=== PATIENT | male | born 1975 | race Caucasian/White ===

== ENCOUNTER 2017-12-29 22:09 | Observation (INO) | payer BC ==
[~2017-12-29] VITALS: Ht 172.7 cm; Wt 78.0 kg
[~2017-12-29 22:09] MED LIST: KEFLEX500 MG PO
[2017-12-29] MEDS ORDERED: KETOROLAC TROMETHAMINE 30 MG/ML VIAL IV STA (22:11)
--- OUTSIDE RECORDS SUMMARY | 2017-12-29 22:12 | XMS REPORT | Clinical Summary ---
Author Author [facility] Organization [facility] Address Unknown Phone Unavailable Care Team Providers Care Pulpwood Buyer Name Role Phone Asked, Pcp PCP Unavailable Allergies Active Allergy Reactions Severity Noted Date Comments Codeine Anaphylaxis High 05/26/2017 Current Medications Prescription Sig. Disp. Refills Start End Date Status Date ibuprofen (MOTRIN IB) 200 Take 200 mg by mouth as Active MG tablet needed for mild pain. 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 There is no significant deformity or malalignment. There are no acute fractures or dislocations. The longitudinal arch appears neutral. There is no soft tissue swelling noted. * XR Lower Extremity External Study (05/18/2017 8:30 AM) Specimen Performing Laboratory [facility] [address] [place] [address] Narrative This exam was not acquired at a [facility] facility and has not been interpreted by a [facility] Provider.The exam was imported into our imaging system for comparisons purposes. after 12/28/2016 Insurance Payer Benefit Subscriber ID Type Phone Address Plan / Group BCBS BCBS xxxxxxxxxxxx PPO CHOICE PPO/JEFF CRAMER PPO
[2017-12-29 22:36] LABS: BASOPHILS % 0.5 % (0.0-1.0); BILIRUBIN,URINE NEGATIVE (NEGATIVE); EOSINOPHILS # (AUTO) 0.3 (0.0-0.4); EOSINOPHILS % 5.2 % (0.0-6.0); HEMATOCRIT 40.8 % (38.2-49.6); HEMOGLOBIN 13.8 g/dL (14.0-18.0); KETONES,URINE NEGATIVE (NEGATIVE); LEUKOCYTE ESTERASE ,URINE NEGATIVE (NEGATIVE); LYMPHOCYTES # (AUTO) 3.1 (1.0-3.2); LYMPHOCYTES % 50.3 % (18.0-39.1); MEAN CORPUSCULAR HEMOGLOBIN 30.6 pg (28-32); MEAN CORPUSCULAR HGB CONC 33.8 g/dL (31-35); MEAN CORPUSCULAR VOLUME 90.5 fL (81-99); MONOCYTES # (AUTO) 0.6 (0.2-0.8); MONOCYTES % 9.6 % (4.4-11.3); NEUTROPHILS # (AUTO) 2.1 (2.1-6.9); NEUTROPHILS % 34.2 % (38.7-80.0); NITRITE,URINE NEGATIVE (NEGATIVE); PLATELET COUNT 226 x10e3/uL (140-360); PROTEIN,URINE DIPSTICK NEGATIVE (NEGATIVE); RED BLOOD COUNT 4.51 x10e6/uL (4.3-5.7); RED CELL DISTRIBUTION WIDTH 12.9 % (11.7-14.4); URINE UROBILINOGEN 0.2 mg/dL (0.2 - 1)
[2017-12-29 22:38] LABS: CLARITY,URINE CLEAR (CLEAR); COLOR,URINE YELLOW (YELLOW)
[2017-12-29 22:55] LABS: ALANINE AMINOTRANSFERASE 16 IU/L (0-55); ALBUMIN 4.2 g/dL (3.5-5.0); ALBUMIN/GLOBULIN RATIO 1.3 (0.8-2.0); ALKALINE PHOSPHATASE 52 IU/L (40-150); ANION GAP 13.5 mmol/L (8-16); BLOOD UREA NITROGEN 15 mg/dL (7-26); BUN/CREATININE RATIO 13 (6-25); CALCIUM 9.2 mg/dL (8.4-10.2); CARBON DIOXIDE 27 mmol/L (22-29); CHLORIDE 104 mmol/L (98-107); CREATININE, SERUM 1.17 mg/dL (0.72-1.25); EST GLOMERULAR FILTRATION RATE > 60 ML/MIN (60-); GLUCOSE 103 mg/dL (74-118); POTASSIUM 3.5 mmol/L (3.5-5.1); SODIUM 141 mmol/L (136-145)
--- NOTE | 2017-12-29 22:55 | Diagnostic Imaging Report ---
EXAM: CT ABDOMEN AND PELVIS without IV CONTRAST ORDER DATE: 12/29/2017 10:16 PM Time stamp on Exam: 2220 hours INDICATION: Left flank pain COMPARISON: CT of the abdomen and pelvis without IV contrast May 30, 2017 TECHNIQUE: The abdomen and pelvis were scanned using a multidetector helical scanner. Coronal and sagittal reformations were obtained. Renal stone protocol performed. IV Contrast: None Oral Contrast: None CTDIvol has been reviewed. It is below the limits set by the Radiation Protocol Committee (RPC). FINDINGS: LOWER THORAX: No consolidations LIVER: No masses BILIARY: Normal gallbladder. No ductal dilation. SPLEEN: No masses PANCREAS: No masses ADRENALS: No nodules RIGHT KIDNEY: Stable 2 mm nonobstructing stone in the inferior pole of the right kidney. LEFT KIDNEY: There is a 3 mm stone at the left ureterovesicular junction resulting in mild hydroureteronephrosis. The previously seen 3 mm stone in the superior pole of the right kidney is no longer visualized, consistent with the stone now at the ureterovesicular junction. No residual left kidney stones. GI TRACT: No wall thickening or obstruction. Normal appendix. VESSELS: Normal. PERITONEUM/RETROPERITONEUM: No free air or fluid LYMPH NODES: No lymphadenopathy REPRODUCTIVE ORGANS: Normal BLADDER: Normal SOFT TISSUES: Normal BONES: No suspicious bone lesions. IMPRESSION: 1. There is a 3 mm stone at the left ureterovesicular junction resulting in mild hydroureteronephrosis. 2. Stable nonobstructing 2 mm stone in the inferior pole of the right kidney. Signed by: Dr. Alisa Pace M.D. on 12/29/2017 10:51 PM
[2017-12-29 23:02] LABS: BACTERIA,URINE RARE /HPF; WBC,URINE (MAN) 0-5 /HPF (0-5)
[2017-12-29] MEDS ORDERED: PENTAZOCINE/NALOXONE 1 TAB PO PRN (23:15)
--- OUTSIDE RECORDS SUMMARY | 2017-12-30 00:07 | XMS REPORT ---
Author Author [facility] Address Unknown Phone Unavailable Care Team Providers Care Waste Management Engineer Name Role Phone ZAFAR ASHRAF Unavailable Unavailable Problems This patient has no known problems. Allergies, Adverse Reactions, Alerts This patient has no known allergies or adverse reactions. Medications This patient has no known medications. Results Test Description Test Time Test Comments Text Results Atomic Results Result Comments CT ABDOMEN/PELVIS WO [place] [address] Patient Name: HAYLIE LEON MR #: [id number] : 1975 Age/Sex: 42/M Req #: [id number] Adm Physician: Ordered by: ZAFAR ASHRAF MD Report # : [id number] Location: ER Room/Bed: Procedure: [id number] CT/CT ABDOMEN/PELVIS WO Exam Date: 12/29/17 Exam Time: 2219 REPORT STATUS: Signed EXAM: CT ABDOMEN AND PELVIS without IV CONTRAST ORDER DATE: 12/29/2017 10:16 PM Time stamp on Exam: 2220 hours INDICATION: Left flank pain COMPARISON: CT of the abdomen and pelvis without IV contrast May 30, 2017 TECHNIQUE: The abdomen and pelvis were scanned using a multidetector helical scanner. Coronal and sagittal reformations were obtained. Renal stone protocol performed. IV Contrast: None Oral Contrast: None CTDIvol has been reviewed. It is below the limits set by the Radiation Protocol Committee (RPC). FINDINGS: LOWER THORAX: No consolidations LIVER: No masses BILIARY: Normal gallbladder. No ductal dilation. SPLEEN: No masses PANCREAS: No masses ADRENALS: No nodules RIGHT KIDNEY: Stable 2 mm nonobstructing stone in the inferior pole of the right kidney. LEFT KIDNEY: There is a 3 mm stone at the left ureterovesicular junction resulting in mild hydroureteronephrosis. The previously seen 3 mm stone in the superior pole of the right kidney is no longer visualized, consistent with the stone now at the ureterovesicular junction. No residual left kidney stones. GI TRACT: No wall thickening or obstruction. Normal appendix. VESSELS: Normal. PERITONEUM/ RETROPERITONEUM: No free air or fluid LYMPH NODES: No lymphadenopathy REPRODUCTIVE ORGANS: Normal BLADDER: Normal SOFT TISSUES: Normal BONES : No suspicious bone lesions. IMPRESSION: 1. There is a 3 mm stone at the left ureterovesicular junction resulting in mild hydroureteronephrosis. 2. Stable nonobstructing 2 mm stone in the inferior pole of the right kidney. Signed by: Dr. Marshall Ames M.D. on 12/29/2017 10:51 PM Dictated By: MARSHALL AMES MD 50 Transcribed By: [place]ORD on 12/29/172250 COPY TO: ZAFAR ASHRAF MD
--- OUTSIDE RECORDS SUMMARY | 2017-12-30 00:07 | XMS REPORT | Clinical Summary ---
Author Author [facility] Organization [facility] Address Unknown Phone Unavailable Care Team Providers Care Trauma Nurse Name Role Phone Asked, Pcp PCP Unavailable [...] interspace of right foot (Primary Dx) after 12/29/2016 Social History Tobacco Use Types Packs/Day Years Used Date Never Smoker Alcohol Use Drinks/Week oz/Week Comments Yes 2 Glasses of wine Sex Assigned at Date Recorded Not on file Last Filed Vital Signs Not on file Plan of Treatment Health Maintenance Due Date Last Done Comments INFLUENZA VACCINE 06/02/2017 Results * XR Foot 3+ Vw Right (05/26/2017 2:46 PM) Specimen Performing Laboratory [facility] [address] [place] [address] Narrative 3 views taken today of the right foot show well-preserved joint spaces throughout. There is no significant deformity or malalignment. There are no acute fractures or dislocations. The longitudinal arch appears neutral. There is no soft tissue swelling noted. * XR Lower Extremity External Study (05/18/2017 8:30 AM) Specimen Performing Laboratory [facility] [address] [place] [address] Narrative This exam was not acquired at a [facility] facility and has not been interpreted by a [facility] Provider.The exam was imported into our imaging system for comparisons purposes. after 12/29/2016 Insurance Payer Benefit Subscriber ID Type Phone Address Plan / Group BCBS BCBS xxxxxxxxxxxx PPO CHOICE PPO/JEFF CRAMER PPO
[2017-12-30 00:30] VITALS: BP 158/93
[2017-12-30] MEDS: SODIUM CHLORIDE 0.9% 1000ML 1,000 ML IV SCH ×2 (00:42→13:44)
[2017-12-30 00:52] VITALS: BP 158/93
[2017-12-30] MEDS: KETOROLAC TROMETHAMINE 30 MG/ML VIAL IV PRN ×3 (04:40→13:59)
[2017-12-30 05:03] VITALS: BP 138/86
[2017-12-30 06:34] LABS: BASOPHILS % 0.5 % (0.0-1.0); EOSINOPHILS # (AUTO) 0.3 (0.0-0.4); EOSINOPHILS % 4.6 % (0.0-6.0); HEMATOCRIT 36.9 % (38.2-49.6); HEMOGLOBIN 12.2 g/dL (14.0-18.0); LYMPHOCYTES # (AUTO) 2.5 (1.0-3.2); LYMPHOCYTES % 40.7 % (18.0-39.1); MEAN CORPUSCULAR HEMOGLOBIN 30.2 pg (28-32); MEAN CORPUSCULAR HGB CONC 33.1 g/dL (31-35); MEAN CORPUSCULAR VOLUME 91.3 fL (81-99); MONOCYTES # (AUTO) 0.6 (0.2-0.8); MONOCYTES % 9.5 % (4.4-11.3); NEUTROPHILS # (AUTO) 2.7 (2.1-6.9); NEUTROPHILS % 44.5 % (38.7-80.0); PLATELET COUNT 198 x10e3/uL (140-360); RED BLOOD COUNT 4.04 x10e6/uL (4.3-5.7); RED CELL DISTRIBUTION WIDTH 12.8 % (11.7-14.4)
[2017-12-30 06:58] LABS: ALANINE AMINOTRANSFERASE 13 IU/L (0-55); ALBUMIN 3.4 g/dL (3.5-5.0); ALBUMIN/GLOBULIN RATIO 1.3 (0.8-2.0); ALKALINE PHOSPHATASE 42 IU/L (40-150); ANION GAP 12.4 mmol/L (8-16); BLOOD UREA NITROGEN 11 mg/dL (7-26); BUN/CREATININE RATIO 11 (6-25); CALCIUM 8.8 mg/dL (8.4-10.2); CARBON DIOXIDE 26 mmol/L (22-29); CHLORIDE 110 mmol/L (98-107); EST GLOMERULAR FILTRATION RATE > 60 ML/MIN (60-); GLUCOSE 91 mg/dL (74-118); POTASSIUM 4.4 mmol/L (3.5-5.1); SODIUM 144 mmol/L (136-145)
[2017-12-30] MEDS ORDERED: PENTAZOCINE/NALOXONE 1 TAB PO PRN (07:45)
[2017-12-30] MEDS ORDERED: KETOROLAC TROMETHAMINE 30 MG/ML VIAL IV STA (07:54)
[2017-12-30 08:22] VITALS: BP 142/100
--- NOTE | 2017-12-30 09:12 | History and Physical ---
DATE OF VISIT: December 30, 2017 HISTORY: This is a 42-year-old male who is recurrent stone former, comes into the hospital after being in pain, left sided, left flank and lower abdomen for 24 hours. PATIENT HAS MULTIPLE ALLERGIES TO ORAL MEDICATION. In the emergency room, he was given ketorolac, and CT scan was done. CT showed a 3-mm stone low in the ureter with minimal perinephric stranding and hydroureter. The patient by history has passed two other stones in the past, one 3-1/2 years ago and one last May. CT scan last May showed a punctuated calcification within the kidney that now in December has developed into a 3-mm stone. Patient had passed stones in the past with pain control and pain management. There has been no other evaluation for a recurrent stone former. The stones are composed of calcium oxalate. PAST MEDICAL HISTORY: Essentially negative except for kidney stone. PAST SURGICAL HISTORY: None. FAMILY HISTORY: Noncontributory for kidney stones. SOCIAL HISTORY: . Two children. Sexually active. No alcohol and no tobacco. No illicit drugs. ALLERGIES: ALLERGIC TO CODEINE, ZOFRAN, PHENERGAN, DILAUDID, AND NORCO. PHYSICAL EXAMINATION: Urological examination revealed bilateral descended testicles, penis normal, no hernias. Pain is present now all the way down to the testicle. IMPRESSION: Ureteral calculi. RECOMMENDATION: The patient should have a 95% chance of passing the stone, as to the time in which this will happen is uncertain, the patient and I discussed that. We discussed 24-hour urine collection. We also discussed medical management at this point and the patient agrees to drink more water, watch his salt intake, take Keratin Complex, and hopefully do a 24-hour urine collection to determine why he has formed stones recurrently. I would check the patient again this afternoon, and if the pain has gotten better or the patient has passed the stone, we will send the patient home. What makes treatment of this patient more complex is the fact that HE HAS ALLERGIES TO ORAL MEDICATIONS that he can take at home. Job#: [id number]
[2017-12-30 12:11] VITALS: BP 143/88
[2017-12-30] MEDS ORDERED: TALWIN NX (14:00)
--- NOTE | 2017-12-30 14:27 | Discharge Summary ---
This 42-year-old male came to the hospital with severe pain. CT scan was done and showed left distal ureteral calculi. The patient also has stones both on the left and right sides, one 3 mm and the other one punctuated in the middle pole. ALLERGIES: ALLERGIC TO CODEINE, HYDROCODONE, HYDROMORPHONE, ONDANSETRON (ZOFRAN), AND PROMETHAZINE. MEDICATIONS: He takes none on a regular basis. PAST MEDICAL HISTORY: Kidney stones. PHYSICAL EXAMINATION: As dictated in the body of the history and physical and consult done. STAY IN THE HOSPITAL: The patient was given Toradol and his medication from home, Talwin NX, since Talwin NX is not available in the hospital formulary. The patient was able to urinate. His pain subsided. He had not passed the stone, but the patient wanted to be discharged and be followed up in the office. The size of the stone is amenable to spontaneous expulsion. Therefore, the patient was given more Talwin NX to go home with. He was given a strainer to strain all his urine, collect the stone, and bring it to the office. He is to call me if there is a problem. DISCHARGE INSTRUCTIONS 1. Diet as tolerated. 2. Fluid as tolerated. 3. Take medications for pain. 4. Bring the stone to the office for analysis. We will be also discussing a 24-hour urine collection. MANUEL BERMEO MD Job#: [id number]
== END 2017-12-30 14:43 | disposition home or self-care (01) ==
LOC: ER 22:09 → ERHOLD 12-30 00:04 → IMCU 12-30 00:05
PROVIDERS: ADMIT Urology; ATTEND Urology
DX: N13.2 Hydronephrosis with renal and ureteral calculous obstruction (principal); Z88.5 Allergy status to narcotic agent; Z88.8 Allergy status to other drugs, medicaments and biological substances
CPT/HCPCS: 36415 ×2; 74176; 80053 ×2; 81001; 85025 ×2; 96374; 99284; G0378; J1885 ×2; J7030

== ENCOUNTER 2017-12-31 16:19 | Observation (INO) | payer BC ==
[~2017-12-31] VITALS: Ht 172.7 cm; Wt 78.0 kg
[~2017-12-31 16:19] MED LIST changes: +FENTANYL CITRATE/PF 100MCG/2 ML INJ ONE; +MIDAZOLAM HCL 2 MG/2 ML VIAL ONE; +TALWIN NX
--- OUTSIDE RECORDS SUMMARY | 2017-12-31 16:22 | XMS REPORT | Clinical Summary ---
Author Author [facility] Organization [facility] Address Unknown Phone Unavailable Care Team Providers Care Graphic Art Designer Name Role Phone Asked, Pcp PCP Unavailable [...] interspace of right foot (Primary Dx) after 12/30/2016 Social History Tobacco Use Types Packs/Day Years Used Date Never Smoker Alcohol Use Drinks/Week oz/Week Comments Yes 2 Glasses of wine Sex Assigned at Date Recorded Not on file Last Filed Vital Signs Not on file Plan of Treatment Health Maintenance Due Date Last Done Comments INFLUENZA VACCINE 06/02/2017 Results * XR Foot 3+ Vw Right (05/26/2017 2:46 PM) Specimen Performing Laboratory [facility] [address] [place] [address] Narrative 3 views taken today of the right foot show well-preserved joint spaces throughout. There is no significant deformity or malalignment. There are no acute fractures or dislocations. The longitudinal arch appears neutral. There is no soft tissue swelling noted. * XR Lower Extremity External Study (05/18/2017 8:30 AM) Specimen Performing Laboratory [facility] [address] [place] [address] Narrative This exam was not acquired at a [facility] facility and has not been interpreted by a [facility] Provider.The exam was imported into our imaging system for comparisons purposes. after 12/30/2016 Insurance Payer Benefit Subscriber ID Type Phone Address Plan / Group BCBS BCBS xxxxxxxxxxxx PPO CHOICE PPO/JEFF CRAMER PPO
--- OUTSIDE RECORDS SUMMARY | 2017-12-31 16:22 | XMS REPORT | Continuity of Care Document ---
Author Author [facility] Organization [facility] Address [address] [place] [address] Phone Unavailable Care Team Providers Care Greens Planter Name Role Phone WILMA NEW DO PCP Insurance Providers Guarantor Haylie New Address [address] [place] [address] Email NONE [facility] Policy Number [id number] Subscriber's Name Haylie New Relationship 18 Self / Same As Patient Group Number [id number] Group Name [facility] Effective Date 16 Advance Directives Directive Response Recorded Date/Time Does the patient have an advance directive? No 12/30/17 12:48am If yes, is advance directive on file with [facility]? No 06/01/14 1:30am If not on file with [facility] will patient provide a copy? No 06/01/14 1:30am Do you have a Directive to Physician? No 12/29/17 11:55pm Do you have a Medical Power of Dry House Attendant? No 12/29/17 11:55pm Do you have an out of hospital Do Not Resuscitate Order? No 12/29/17 11:55pm Do you have any special needs we should be aware of? No 12/29/17 11:55pm Do you have a support person here with you today? Yes 12/29/17 11:55pm Did patient receive Notice of Privacy Practices? Yes 12/29/17 11:55pm Did patient receive patient rights and responsibilities? Yes 12/29/17 11:55pm Problems Medical Problem Onset Date Status Ureterolithiasis Unknown Medications Current Home Medications Medication Dose Units Route Directions Days Qty Instructions Start Date Talwin Nx 12/30/17 Past Home Medications Medication Directions Ordered Status Cephalexin Monohydrate (Keflex) 500 Mg Capsule, 500 Mg Oral Twice A Day Discontinued Social History Social History Problem Response Recorded Date/Time Onset Date Status Hx Psychiatric Problems No 12/30/2017 12:48am Not Applicable Not Applicable Hx Eating Disorder No 12/30/2017 12:48am Not Applicable Not Applicable Hx Substance Use Disorder No 12/30/2017 12:48am Not Applicable Not Applicable Hx Depression No 12/30/2017 12:48am Not Applicable Not Applicable Hx Alcohol Use No 12/30/2017 12:48am Not Applicable Not Applicable Hx Substance Use Treatment No 12/30/2017 12:48am Not Applicable Not Applicable Hx Physical Abuse No 12/30/2017 12:48am Not Applicable Not Applicable Hospital Discharge Instructions No hospital discharge instruction information available. Plan of Care Discharge Date 12/30/17 2:43pm Disposition HOME, SELF-CARE Instructions/Education Provided Abdominal Pain - Adult Prescriptions See Medication Section Referrals MANUEL BERMEO MD (Urology) Entered Date: 12/30/2017 2:07pm Address: [address] [place] [id number] Additional Instructions/Education TAKE MEDICATION ORDERED STRAIN ALL URINE FOLLOW WITH DR BERMEO DISCUSSED Functional Status Query Response Date Recorded Assistive Devices None December 30, 2017 12:52am Ambulation Ability Independent December 30, 2017 12:52am Toileting Ability Independent December 30, 2017 12:52am Allergies, Adverse Reactions, Alerts Allergen Type Severity Reaction Status Last Updated Codeine Allergy Unknown Active 05/30/17 Hydrocodone Allergy Severe Active 12/30/17 Promethazine Allergy Unknown Active 05/30/17 Hydromorphone Allergy Severe Active 12/30/17 Ondansetron Allergy Unknown Active 05/30/17 Immunizations No immunization information available. Vital Signs Acute Vital Signs Vital Response Date/Time Temperature (Fahrenheit) 97.2 degrees F (97.6 - 99.5) 12/30/2017 12:11pm Pulse Pulse Rate (adult) 77 bpm (60 - 90) 12/30/2017 12:11pm Respiratory Rate 18 bpm (12 - 24) 12/30/2017 12:11pm Blood Pressure 143/88 mm Hg 12/30/2017 12:11pm Height 5 ft 8 in 12/29/2017 10:17pm Weight 172.06 lb 12/30/2017 12:48am Body Mass Index 26.2 kg/m^2 12/30/2017 12:48am Results Laboratory Results Test Name Result Units Flags Reference Collection Date/Time Result Date/ Time Comments Urine Mucus FEW H RARE 05/30/2017 6:35am 05/30/2017 6:55am White Blood Count 6.10 x10e3/uL 4.8-10.8 12/30/2017 5:55am 12/30/2017 6 :48am Red Blood Count 4.04 x10e6/uL L 4.3-5.7 12/30/2017 5:55am 12/30/2017 6: 48am Hemoglobin 12.2 g/dL L 14.0-18.0 12/30/2017 5:55am 12/30/2017 6:48am Hematocrit 36.9 % L 38.2-49.6 12/30/2017 5:55am 12/30/2017 6:48am Mean Corpuscular Volume 91.3 fL 81-99 12/30/2017 5:55am 12/30/2017 6: 48am Mean Corpuscular Hemoglobin 30.2 pg 28-32 12/30/2017 5:55am 12/30/2017 6:48am Mean Corpuscular Hemoglobin Concent 33.1 g/dL 31-35 12/30/2017 5:55am 12/30/2017 6:48am Red Cell Distribution Width 12.8 % 11.7-14.4 12/30/2017 5:55am 2017 6:48am Platelet Count 198 x10e3/uL 140-360 12/30/2017 5:55am 12/30/2017 6: 48am Neutrophils (%) (Auto) 44.5 % 38.7-80.0 12/30/2017 5:55am 12/30/2017 6: 48am Lymphocytes (%) (Auto) 40.7 % H 18.0-39.1 12/30/2017 5:55am 12/30/2017 6 :48am Monocytes (%) (Auto) 9.5 % 4.4-11.3 12/30/2017 5:55am 12/30/2017 6: 48am Eosinophils (%) (Auto) 4.6 % 0.0-6.0 12/30/2017 5:55am 12/30/2017 6: 48am Basophils (%) (Auto) 0.5 % 0.0-1.0 12/30/2017 5:55am 12/30/2017 6:48am IM GRANULOCYTES % 0.2 % 0.0-1.0 12/30/2017 5:55am 12/30/2017 6:48am Neutrophils # (Auto) 2.7 2.1-6.9 12/30/2017 5:55am 12/30/2017 6:48am Lymphocytes # (Auto) 2.5 1.0-3.2 12/30/2017 5:55am 12/30/2017 6:48am Monocytes # (Auto) 0.6 0.2-0.8 12/30/2017 5:55am 12/30/2017 6:48am Eosinophils # (Auto) 0.3 0.0-0.4 12/30/2017 5:55am 12/30/2017 6:48am Basophils # (Auto) 0.0 0.0-0.1 12/30/2017 5:55am 12/30/2017 6:48am Absolute Immature Granulocyte (auto 0.01 x10e3/uL 0-0.1 12/30/2017 5: 55am 12/30/2017 6:48am Urine Color YELLOW YELLOW 12/29/2017 10:14pm 12/29/2017 10:38pm Urine Clarity CLEAR CLEAR 12/29/2017 10:14pm 12/29/2017 10:38pm Urine Specific Joffre 1.005 L 1.010-1.025 12/29/2017 10:14pm 2017 10:38pm Urine pH 7 5 - 7 12/29/2017 10:14pm 12/29/2017 10:38pm Urine Leukocyte Esterase NEGATIVE NEGATIVE 12/29/2017 10:14pm 2017 10:38pm Urine Nitrite NEGATIVE NEGATIVE 12/29/2017 10:14pm 12/29/2017 10: 38pm Urine Protein NEGATIVE NEGATIVE 12/29/2017 10:14pm 12/29/2017 10: 38pm Urine Glucose (UA) NEGATIVE NEGATIVE 12/29/2017 10:14pm 12/29/2017 10 :38pm Urine Ketones NEGATIVE NEGATIVE 12/29/2017 10:14pm 12/29/2017 10: 38pm Urine Urobilinogen 0.2 mg/dL 0.2 - 1 12/29/2017 10:14pm 12/29/2017 10: 38pm Urine Bilirubin NEGATIVE NEGATIVE 12/29/2017 10:14pm 12/29/2017 10: 38pm Urine Blood 1+ H NEGATIVE 12/29/2017 10:14pm 12/29/2017 10:38pm Urine WBC 0-5 /HPF 0-5 12/29/2017 10:14pm 12/29/2017 11:02pm Urine RBC 11-20 /HPF H 0-5 12/29/2017 10:14pm 12/29/2017 11:02pm Urine Bacteria RARE /HPF NONE 12/29/2017 10:14pm 12/29/2017 11:02pm Urine Epithelial Cells NONE /LPF NONE 12/29/2017 10:14pm 12/29/2017 11: 02pm Sodium Level 144 mmol/L 136-145 12/30/2017 5:55am 12/30/2017 6:59am Potassium Level 4.4 mmol/L # 3.5-5.1 12/30/2017 5:55am 12/30/2017 6:59am Chloride Level 110 mmol/L H 98-107 12/30/2017 5:55am 12/30/2017 6:59am Carbon Dioxide Level 26 mmol/L 12/30/2017 5:55am 12/30/2017 6: 59am Anion Gap 12.4 mmol/L 8-16 12/30/2017 5:55am 12/30/2017 6:59am Blood Urea Nitrogen 11 mg/dL 05-2712/30/2017 5:55am 12/30/2017 6:59am Creatinine 1.00 mg/dL 0.72-1.25 12/30/2017 5:55am 12/30/2017 6:59am BUN/Creatinine Ratio 11 6-25 12/30/2017 5:55am 12/30/2017 6:59am Estimat Glomerular Filtration Rate > 60 ML/MIN 60- 12/30/2017 5:55am 6:59am Ranges were taken from the National Kidney Disease Education Program and the National Kidney Foundation literature. Reference ranges: 60 or greater: Normal 16-59 (for 3 consecutive months): Chronic kidney disease 15 or less: Kidney failure Glucose Level 91 mg/dL 74-118 12/30/2017 5:55am 12/30/2017 6:59am Calcium Level 8.8 mg/dL 8.4-10.2 12/30/2017 5:55am 12/30/2017 6:59am Total Bilirubin 0.4 mg/dL 0.2-1.2 12/30/2017 5:55am 12/30/2017 6:59am Aspartate Amino Transf (AST/SGOT) 7 IU/L 5-34 12/30/2017 5:55am 2017 6:59am Alanine Aminotransferase (ALT/SGPT) 13 IU/L 0-55 12/30/2017 5:55am 6:59am Total Protein 6.1 g/dL L 6.5-8.1 12/30/2017 5:55am 12/30/2017 6:59am Albumin 3.4 g/dL L 3.5-5.0 12/30/2017 5:55am 12/30/2017 6:59am Globulin 2.7 g/dL 2.3-3.5 12/30/2017 5:55am 12/30/2017 6:59am Albumin/Globulin Ratio 1.3 0.8-2.0 12/30/2017 5:55am 12/30/2017 6: 59am Alkaline Phosphatase 42 IU/L 40-150 12/30/2017 5:55am 12/30/2017 6: 59am Procedures Procedure Status Date Provider(s) CT of abdomen and pelvis without contrast Active 05/30/[address] of abdomen and pelvis without contrast Active 12/29/17 ZAFAR ASHRAF MD Encounters Encounter Location Arrival/Admit Date Discharge/Depart Date Attending Provider Discharged Inpatient (obs) [facility] 12/30/17 12:04am 2:43pm MANUEL BERMEO MD Departed Emergency Room [facility] 05/30/17 6:30am 7:37am TOMAS SUAZO MD
[2017-12-31] MEDS ORDERED: IOPAMIDOL 610MG/1ML 300 MG/ML VIAL IV ONE (16:38)
[2017-12-31] MEDS ORDERED: HYDROMORPHONE 1MG/1ML INJ ONE (16:52)
--- OUTSIDE RECORDS SUMMARY | 2017-12-31 16:59 | XMS REPORT | Clinical Summary ---
Author Author [facility] Organization [facility] Address Unknown Phone Unavailable Care Team Providers Care Financial Recruiter Name Role Phone Asked, Pcp PCP Unavailable [...] Right (05/26/2017 2:46 PM) Specimen Performing Laboratory [facility] [address] [place] [address] Narrative 3 views taken today of the right foot show well-preserved joint spaces throughout. There is no significant deformity or malalignment. There are no acute fractures or dislocations. The longitudinal arch appears neutral. There is no soft tissue swelling noted. * XR Lower Extremity External Study (05/18/2017 8:30 AM) Specimen Performing Laboratory [facility] [address] [place] [address] Narrative This exam was not acquired at a [facility] facility and has not been interpreted by a [facility] Provider.The exam was imported into our imaging system for comparisons purposes. after 12/30/2016 Insurance Payer Benefit Subscriber ID Type Phone Address Plan / Group BCBS BCBS xxxxxxxxxxxx PPO CHOICE PPO/JEFF CRAMER PPO
[2017-12-31 17:04] LABS: BASOPHILS % 0.2 % (0.0-1.0); EOSINOPHILS # (AUTO) 0.1 (0.0-0.4); EOSINOPHILS % 0.7 % (0.0-6.0); HEMATOCRIT 37.9 % (38.2-49.6); LYMPHOCYTES # (AUTO) 0.9 (1.0-3.2); LYMPHOCYTES % 9.6 % (18.0-39.1); MEAN CORPUSCULAR HEMOGLOBIN 30.9 pg (28-32); MEAN CORPUSCULAR HGB CONC 34.3 g/dL (31-35); MONOCYTES # (AUTO) 0.7 (0.2-0.8); MONOCYTES % 7.4 % (4.4-11.3); NEUTROPHILS # (AUTO) 7.5 (2.1-6.9); NEUTROPHILS % 81.8 % (38.7-80.0); PLATELET COUNT 200 x10e3/uL (140-360); RED BLOOD COUNT 4.21 x10e6/uL (4.3-5.7); RED CELL DISTRIBUTION WIDTH 12.6 % (11.7-14.4)
[2017-12-31 17:25] LABS: ALBUMIN 3.9 g/dL (3.5-5.0); ALBUMIN/GLOBULIN RATIO 1.1 (0.8-2.0); ANION GAP 15.1 mmol/L (8-16); CALCIUM 9.2 mg/dL (8.4-10.2); CREATININE, SERUM 1.32 mg/dL (0.72-1.25); POTASSIUM 4.1 mmol/L (3.5-5.1)
--- NOTE | 2017-12-31 17:37 | Diagnostic Imaging Report ---
PROCEDURE:US RETROPERITONEAL ( KIDNEY ). COMPARISON:[facility], CT, CT ABDOMEN/PELVIS WO, 12/29/2017, 22:19. INDICATIONS:KIDNEY STONE TECHNIQUE: Piedra-scale and color sonographic images of the bilateral kidneys and bladder where obtained in transverse and longitudinal planes. FINDINGS: RIGHT KIDNEY: 10.3 cm, cortex 1.4 cm Cysts: None Solid masses: None Stones: None Hydronephrosis: None Echogenicity: Normal LEFT KIDNEY: 11.1 cm, cortex 1.7 cm Cysts: None Solid masses: None Stones: None Hydronephrosis: Mild hydronephrosis Echogenicity: Normal chest Bladder: No focal lesions. No wall thickening. Right ureteral jet is identified. The left ureteral jet is not visualized. Prostate: 2.7 x 3.2 x 3.1 cm (estimated volume 13.9 CC). CONCLUSION: 1. Normal bilateral renal size, and echogenicity. No focal lesions. 2. Mild left hydronephrosis. 3. Previously described 3 mm right nonobstructing stone on CT dated 12/29/27 is not visualized on the current exam. Wolfgang Warren M.D. Dictated by: Wolfgang Warren M.D. on 12/31/2017 at 17:37 Electronically approved by: Wolfgang Warren M.D. on 12/31/2017 at 17:37
[2017-12-31] MEDS ORDERED: SODIUM CHLORIDE 0.9% 50ML 50 ML ONE (17:42)
[2017-12-31] MEDS ORDERED: CEFAZOLIN SOD 1 GM VIAL ONE (17:42)
[2017-12-31] MEDS ORDERED: LIDOCAINE HCL 2% LOCAL INJ 5 ML SDV VIAL INJ ONE (17:44)
[2017-12-31] MEDS ORDERED: PROPOFOL IV EMULSION 10 MG/ML 20 ML VIAL ONE (17:44)
[2017-12-31] MEDS ORDERED: ACETAMINOPHEN 1000 MG/100 ML IV ONE (17:44)
[2017-12-31] MEDS ORDERED: ONDANSETRON HCL INJ 2 MG/ML VIAL ONE (17:44)
[2017-12-31] MEDS ORDERED: ROCURONIUM BROMIDE 10 MG/ML 5ML VIAL ONE (17:44)
[2017-12-31] MEDS ORDERED: DEXAMETHASONE SOD PHOS INJ 4 MG/ML VIAL ONE (17:44)
[2017-12-31] MEDS ORDERED: SEVOFLURANE INHAL SOLN 250 ML PEN BTL ONE (17:44)
[2017-12-31] MEDS ORDERED: HYDROMORPHONE 1MG/1ML INJ IV PRN (19:00)
[2017-12-31] MEDS: SODIUM CHLORIDE 0.9% 1000ML 1,000 ML IV SCH (19:00)
--- OUTSIDE RECORDS SUMMARY | 2017-12-31 19:18 | XMS REPORT | Clinical Summary ---
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 There is no significant deformity or malalignment. There are no acute fractures or dislocations. The longitudinal arch appears neutral. There is no soft tissue swelling noted. * XR Lower Extremity External Study (05/18/2017 8:30 AM) Specimen Performing Laboratory [facility] [address] [place] [address] Narrative This exam was not acquired at a [employer] facility and has not been interpreted by a [employer] Provider.The exam was imported into our imaging system for comparisons purposes. after 12/30/2016 Insurance Payer Benefit Subscriber ID Type Phone Address Plan / Group BCBS BCBS xxxxxxxxxxxx PPO CHOICE PPO/JEFF [employer]AMER PPO
[2017-12-31 19:35] VITALS: BP 153/87
--- NOTE | 2017-12-31 20:20 | History and Physical ---
UPDATED HISTORY AND PHYSICAL HISTORY: This is a 42-year-old male who was admitted and discharged from the hospital with a kidney stone, 3 mm, intramural portion, left kidney. The patient went home on Toradol for his pain. The patient within 24 hours had extreme, severe pain, called me. The only other option was to remove the stone. Of interest is that we have discussed this as the patient has passed stones before, and this is a small stone, also 3 mm that could pass. Because of severe symptomatology, the patient comes to the hospital now for cystoscopy and ureteroscopy. Ultrasound had been performed, and the ultrasound shows left hydro with no ureteral jets. RECOMMENDATIONS: Do a cystoscopy, retrograde pyelograms, ureteroscopy, stone extraction and possibly double J. Job#: [id number]
[2017-12-31 20:30] VITALS: BP 153/87
[2018-01-01] VITALS: BP 142/77
[2018-01-01 00:11] VITALS: BP 153/87
[2018-01-01] MEDS: SODIUM CHLORIDE 0.9% 1000ML 1,000 ML IV SCH (03:37)
[2018-01-01 04:00] VITALS: BP 131/65
[2018-01-01 07:57] VITALS: BP 136/67
[2018-01-01] MEDS ORDERED: HYDROCODONE/APAP 5MG-325MG TAB PO NR (08:30)
[2018-01-01 12:04] VITALS: BP 138/81
[2018-01-01] MEDS ORDERED: HYDROCODONE/APAP 5MG-325MG TAB ONE (12:44)
[2018-01-01] MEDS ORDERED: HYDROCODONE/APAP 5MG-325MG TAB PO ONE (12:45)
--- NOTE | 2018-01-01 19:18 | Diagnostic Imaging Report ---
PROCEDURE: X-RAY RETROGRADE PYELOGRAM COMPARISON: Patients [facility], CT, CT ABDOMEN/PELVIS WO, 12/29/2017, 22:19. INDICATIONS: Kidney stone FINDINGS: Multiple intraoperative spot images of the abdomen and pelvis were obtained. There is retrograde cannulization of the left ureter with contrast injection. No filling defects identified.. Left double-J internal ureteral stent was placed. CONCLUSION: Retrograde pyelogram as described above. Wolfgang Warren M.D. Dictated by: Wolfgang Warren M.D. on 01/01/2018 at 19:18 Electronically approved by: Wolfgang Warren M.D. on 01/01/2018 at 19:18
--- NOTE | 2018-01-01 19:42 | Operative Report ---
DATE OF PROCEDURE: December 31, 2017 PREOPERATIVE DIAGNOSIS: 1. Left ureteral calculi. 2. Bilateral renal calculi. POSTOPERATIVE DIAGNOSIS: 1. Left ureteral calculi. 1. Bilateral renal calculi. 2. Impacted left distal ureteral calculi. OPERATION PERFORMED: 1. Cystoscopy. 2. Retrograde pyelograms. 3. Stone manipulation. 4. Rigid ureteroscopy. 5. Stone extraction. 6. Placement of left double J. ANESTHESIA: Staff. Anesthesia general. FINDINGS: Patient had a normal urethra. Meatus was tight, dilated. The prostate was open. Bladder was normal. Left hemitrigone is swollen. Ureteral stone impacted, manipulated and removed using a basket. PROCEDURE: With the patient under satisfactory general anesthesia, the patient was placed in the supine position on the operating table. Legs were placed on stirrups. Genitalia was then prepped with Betadine soap and solution and draped in the usual manner. A number 22-Hungarian cystourethroscope was passed per urethra into the bladder. Urethral meatus was tight. Dilatation was done to a 24 [place]win sound. At that point, cystoscopy was performed and findings are dictated above. Using a number 8 cone-tipped ureteral catheter, contrast media was injected retrograde up the left side. It was noted that the patient had a very tight, very narrow intramural portion of the ureter. Above the stone the ureter was dilated, as was the renal pelvis. At this point, a guidewire was introduced. It had to be manipulated to be able to pass by the stone. Once that was done, advancement of the guidewire was done all the way up to the kidney. Next, the ureteroscope was introduced. The guidewire was removed, and advancement of the ureteroscope was done until the stone was identified. At this point, using a Nitinol basket the stone was engaged after several tries, and once engaged it was pulled out with some difficulty through the intramural portion of the ureter. The stone was 3 mm, and it was tight going through that intramural portion of the ureter. Once it was done, it was identified that there was some bleeding associated with the removal of that stone. Contrast media was then placed into the ureter, and it was noted that it was not draining properly. At this point, the guidewire was introduced all the way up to the kidney, and a 6-Hungarian K-wire universal double J with a string was then placed over the guidewire all the way up to the kidney, coiled in the renal pelvis, and the guidewire was removed and the coil was made in the bladder. The sleeve was used to disengage the pusher and leave the double J in place. The string was then taped to the patient's penis. The patient was then taken to the recovery room in satisfactory condition. DISCHARGE INSTRUCTIONS: Patient was kept overnight for observation. The next morning, the patient was given Vermillion as a trial, and he did not stop bleeding. So, the patient was then discharged home with the double J in place and on Vermillion. He will be seen in the office within 3 days, on Thursday morning, to remove his double J if the urine is clear. The patient is to call me if there is a problem. Job#: [id number]
== END 2018-01-01 17:00 | disposition home or self-care (01) ==
LOC: ER 16:19 → OR 16:56 → MED/SURG 19:00
PROVIDERS: ADMIT Surgery; ATTEND Surgery
DX: N20.0 Calculus of kidney (principal); N20.2 Calculus of kidney with calculus of ureter; Z87.442 Personal history of urinary calculi
CPT/HCPCS: 36415; 52320; 52332; 74420; 76770; 80053; 85025; 88300; C1758; C2625; G0378 ×2; J0690; J1100; J1170; J2001; J2250; J2405; J7030; Q9967

== ENCOUNTER → 2020-08-03 | Outpatient (CLI) | payer SELFPAY ==
[~2020-08-03] MED LIST changes: -FENTANYL CITRATE/PF 100MCG/2 ML INJ ONE; -MIDAZOLAM HCL 2 MG/2 ML VIAL ONE
== END ==
LOC: CT 08:25
PROVIDERS: ATTEND Family Medicine
DX: N20.0 Calculus of kidney (principal)
CPT/HCPCS: 74176

== ENCOUNTER → 2024-10-07 | Day surgery (SDC) | payer BC ==
[~2024-10-07] MED LIST changes: +ACETAMINOPHEN 1000 MG/100 ML 100 ML IV ONE; +DEXAMETHASONE SOD PHOS INJ 4 MG/ML SDV ONE; +EPHEDRINE SULFATE INJ 50 MG/ML VIAL ONE; +FAMOTIDINE 20 MG/2 ML VIAL IV ONE; +FENTANYL CITRATE/PF 100MCG/2 ML INJ ONE; +LIDOCAINE HCL 2% LOCAL INJ 5 ML SDV VIAL INJ ONE; +ONDANSETRON HCL INJ 2MG/ML 2ML 2 MG/ML VIAL ONE; +PHENYLEPHRINE HCL 1% 10 MG/ML VIAL ONE; +PROPOFOL IV EMULSION 10 MG/ML 20 ML VIAL ONE; +VALSARTAN-HCTZ1 EAC1 PO
[2024-10-07] MEDS: LACTATED RINGER'S 1,000 ML ONE (07:08)
[2024-10-07 10:23] VITALS: TEMP 97.3
[2024-10-07] MEDS: ONDANSETRON HCL INJ 2MG/ML 2ML 2 MG/ML VIAL ONE (11:30)
[2024-10-07 11:35] VITALS: BP 130/68; PULSE 79; RESP 16; O2SAT 97
== END | disposition home or self-care (01) ==
LOC: OR 06:31
PROVIDERS: ATTEND Surgery
DX: D17.9 Benign lipomatous neoplasm, unspecified (principal); I10 Essential (primary) hypertension; Z88.6 Allergy status to analgesic agent; Z88.8 Allergy status to other drugs, medicaments and biological substances; Z79.899 Other long term (current) drug therapy
CPT/HCPCS: 21014; 23073; 88304; J0131; J1100; J2003; J2371; J2405; J2704; J3010; J7121